=== PATIENT | female | born 1965 | race Caucasian/White ===

== ENCOUNTER 2019-09-30 08:00 | Outpatient (CLI) | payer OTHER ==
[~2019-09-30] VITALS: Ht 172.7 cm; Wt 136.1 kg
[2019-09-30] MEDS ORDERED: PRINIVIL10 MG PO (13:02)
[2019-09-30] MEDS ORDERED: HYDROCHLOROTHIA50 MG PO (13:02)
[2019-09-30] MEDS ORDERED: CELEXA20 MG PO (13:03)
[2019-09-30 14:03] LABS: HEMATOCRIT 45.3 % (36.0-48.0); HEMOGLOBIN 14.3 g/dL (12-16); MCH 29.2 pg (26.0-34.0); MCHC 31.6 g/dL (31.0-37.0); MCV 92.6 fL (80.0-100.0); MEAN PLATELET VOLUME 9.4 fL (7.4-10.4); RBC 4.89 10x6/uL (4.00-5.40); RDW 13.8 % (11.5-14.5); WBC 5.5 10x3/uL (4.8-10.8)
[2019-09-30 14:11] LABS: ANION GAP 10.5 mmol/L (8-16); CALCIUM 9.2 mg/dL (8.5-10.1); CARBON DIOXIDE 31.4 mmol/L (21.0-32.0); CREATININE - SERUM 1.1 mg/dL (0.6-1.3); POTASSIUM - SERUM 3.9 mmol/L (3.5-5.1)
== END 2019-09-30 08:01 | disposition home or self-care (01) ==
LOC: D.OPS 08:00 → EDSTATUS 10-01 09:00 → D.PAN 10-01 09:00 → D.OPS 10-01 09:00
PROVIDERS: Anesthesiology; ATTEND Orthopaedic Surgery
DX: S83.241A Other tear of medial meniscus, current injury, right knee, initial encounter (principal); E78.2 Mixed hyperlipidemia; I10 Essential (primary) hypertension; M25.561 Pain in right knee; S82.101A Unspecified fracture of upper end of right tibia, initial encounter for closed fracture

== ENCOUNTER → 2019-10-19 10:40 | Outpatient (CLI) | payer OTHER ==
[~2019-10-19 10:40] MED LIST: CELEXA20 MG PO; HYDROCHLOROTHIA50 MG PO; PRINIVIL10 MG PO
--- NOTE | 2019-10-20 15:03 | EC ---
PATIENT:ION WALTERS DATE OF SERVICE: 10/19/19 SEX: F MEDICAL RECORD: [id number] DATE OF : 67 [facility] AGE OF PATIENT: 54 ADMISSION DATE: 10/19/19 REFERRING PHYSICIAN: INTERPRETING PHYSICIAN: BRE CATES MD ECHOCARDIOGRAM REPORT ECHO CHARGES 4 ECHO COMPLETE Date: 10/19/19 CLINICAL DIAGNOSIS: HTN/MURMUR ECHOCARDIOGRAPHIC MEASUREMENTS (adult normal given) AC root (d.<3.7cm) 3.2 cm LV Septum d (<1.2 cm> 1.6 cm Valve Excursion 1.8 cm LV Septum (systole) 1.8 cm Left Atria (s.<4.0cm> 3.5 cm LVPW d(<1.2cm) 1.7 cm RV (d.<2.3cm) 3.5 cm LVPW (sytole) 2.0 cm LV diastole(<5.6CM) 5.6 cm MV E-F(>70mm/sec) cm LV systole 3.9 cm LVOT Diameter 1.8 cm MV exc.(>10mm) 1.5 cm Est.ejection fraction (50-75%) % DOPPLER: LVIT cm/sec A 63.0 cm/sec E 98.0 cm/sec LA cm/sec RVSP 29 mmHg LVOT 128 cm/sec AOP1/2T m/s Asc. Ao 165 cm/sec RVOT 88 cm/sec RA cm/sec PA 120 cm/sec AV Gradient Peak 10.84mmHg AV Mean 5.66 mmHg AV Area 2.2 cm MV Gradient Peak 4.47 mmHg MV Mean 1.43 mmHg MV Area cm COMMENTS: Floorman: 2 LILLIE GONCALVES Truckload Owner Operator: 3 Dr. Douglas TAPE# PACS Pericardial Effusion N DATE OF SERVICE: 10/19/2019 Adequate 2D, color flow imaging, spectral Doppler, and M-Mode LVH is present. LV internal dimensions are normal. Wall motion is normal. EF is greater than or equal to 55%. Aortic valve is tricuspid. No evidence of stenosis by Doppler interrogation. Left atrium is normal at 3.5 cm. Mitral valve shows no prolapse. Trace MR. Right-sided chambers are grossly normal. Trace TR. ECHOCARDIOGRAM REPORT [id number] ION WALTERS TRANSINT:[id number] Voice Confirmation ID: [id number] DOCUMENT ID: [id number] BRE CATES MD at 1503 CC: [id number] DICTATION DATE: 10/20/19816 ECONOMIC MANAGER: 10/20/19 1448 [facility] CLI 10/19/19 [place] [id number] [place] [id number]
== END | disposition home or self-care (01) ==
LOC: D.HCCECHO 10:40
PROVIDERS: ATTEND Internal Medicine Interventional Cardiology
DX: I10 Essential (primary) hypertension (principal)

== ENCOUNTER 2019-11-23 06:00 | Day surgery (SDC) | payer OTHER ==
[2019-11-20 16:05] LABS: ANION GAP 6.7 mmol/L (8-16); CALCIUM 8.4 mg/dL (8.5-10.1); CARBON DIOXIDE 31.4 mmol/L (21.0-32.0); CREATININE - SERUM 1.1 mg/dL (0.6-1.3); POTASSIUM - SERUM 4.1 mmol/L (3.5-5.1)
[2019-11-20 16:13] LABS: HEMATOCRIT 43.9 % (36.0-48.0); HEMOGLOBIN 13.6 g/dL (12-16); MCH 29.1 pg (26.0-34.0); MCV 93.8 fL (80.0-100.0); MEAN PLATELET VOLUME 9.9 fL (7.4-10.4); RBC 4.68 10x6/uL (4.00-5.40); RDW 13.7 % (11.5-14.5); WBC 5.9 10x3/uL (4.8-10.8)
[~2019-11-23] VITALS: Ht 172.7 cm; Wt 136.1 kg
--- NOTE | ~2019-11-23 | OP ---
PATIENT NAME: ION WALTERS MEDICAL RECORD: [id number] :67 LOCATION:[facility] ADMISSION DATE: SURGEON: BAL PAN MD DATE OF OPERATION: 11/23/2019 PREOPERATIVE DIAGNOSIS: Medial meniscus tear of the right knee. POSTOPERATIVE DIAGNOSES: Medial meniscus tear of the right knee plus large loose body in the intercondylar notch. PROCEDURES: 1. Arthroscopic partial medial meniscectomy of the right knee. 2. Arthroscopic removal of a large loose body in the intercondylar notch. SURGEON: Bal Pan MD ANESTHESIA: General. INTRAOPERATIVE COMPLICATIONS: None. SUMMARY OF PATHOLOGIC FINDINGS: The patient had a complex tear of the posterior horn of medial meniscus as seen on the MRI; however, there was a very large approximately 0.7 cm x 0.5 cm found in the intercondylar notch. It did represent an osteochondral loose body. This was removed likewise and was more likely the cause of the patient's acute and intermittent pain. 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 OPERATIVE SUMMARY IN DETAIL: After obtaining the appropriate preoperative orthopedic surgery consent as well as anesthetic consultation, evaluation and clearance, the patient was brought to the operating room and placed on the operating table in supine position. After adequate general laryngeal mask airway was administered, a tourniquet was placed about the proximal aspect of the right lower extremity. The right lower extremity was prepped and draped in routine sterile fashion. The leg was elevated and exsanguinated, tourniquet was inflated to 350 mmHg. Routine timeout was taken and agreed upon by all given the patient's unique identifiers. Inferolateral portal was established in the superior superomedial portal and inferomedial portal. Diagnostic arthroscopy showed the patient to have the above findings. Attention was first turned to the medial meniscus. A combination of meniscotomes as well as an arthroscopic resector utilized to debride the complex tear of the posterior horn of the medial meniscus back to a very stable meniscal elements. Having completed this, a 5-0 resector in conjunction with an arthroscopic grasper utilized to remove and morcellized the patient's large loose body in its entirety. This was implanted just medial to the footprint of the ACL. Having completed this and noting that the lateral and patellofemoral joint were in relatively good position, the knee was insufflated with 80 mg of Depo-Medrol and 30 cc of 0.25% Marcaine with epinephrine. The arthroscopic portals were closed with 4-0 Prolene in routine interrupted fashion. Sterile dressings were applied. Tourniquet was deflated. The patient was awakened and taken to the recovery room in stable condition. All final needle and sponge counts were correct. TRANSINT:[id number] Voice Confirmation ID: [id number] DOCUMENT ID: [id number] OPERATIVE REPORT [id number] ION WALTERS MD, BAL BECERRA CC: [id number] DICTATION DATE: 11/27/19 1057 WASH DRILLER HELPER: 11/27/19 1301 DEP SDC 11/23/19 [facility] [address] [place] [address]
[~2019-11-23 06:00] MED LIST changes: +ACETAMINOPHEN500 M1 PO
[2019-11-23 06:45] VITALS: BP 140/90; Ht 172.7 cm; Wt 136.1 kg
[2019-11-23] MEDS ORDERED: HYDROCODON-ACE1 EA10 PO (08:27)
--- NOTE | 2019-11-23 09:35 | NUR ---
0930 STATES HAS CRUTCHES IN THE TRUCK. DENIES NEEDS. DENIES NAUSEA DENIES PAIN, MOTHER AT SIDE.
== END 2019-11-23 10:30 | disposition home or self-care (01) ==
LOC: D.OPS 06:00
PROVIDERS: Anesthesiology; ATTEND Orthopaedic Surgery
DX: S83.241A Other tear of medial meniscus, current injury, right knee, initial encounter (principal); X58.XXXA Exposure to other specified factors, initial encounter; M25.561 Pain in right knee; E78.5 Hyperlipidemia, unspecified; I10 Essential (primary) hypertension